=== PATIENT | male | born 1960 | race Caucasian/White ===

== ENCOUNTER 2023-09-21 07:03 | Day surgery (SDC) | payer OTHER ==
[~2023-09-21] VITALS: Ht 193 cm; Wt 90.7 kg
[2023-09-21] MEDS ORDERED: fentaNYL CITRATE/PF 100 MCG/2 ML AMP ONE (07:21)
[2023-09-21] MEDS ORDERED: MIDAZOLAM HCL 5 MG/5 ML VIAL ONE (07:22)
[2023-09-21] MEDS ORDERED: DIPHENHYDRAMINE INJ 50 MG/ML VIAL ONE (08:58)
[2023-09-21 09:00] VITALS: O2SAT 98
[2023-09-21 09:40] VITALS: BP_SYST 106; PULSE 60; RESP 18; TEMP 97.9
== END 2023-09-21 10:20 | disposition home or self-care (01) ==
LOC: SDS 07:03 → SMU 07:04 → SDS 10:20
PROVIDERS: ATTEND Internal Medicine
DX: K74.69 Other cirrhosis of liver (principal); K29.50 Unspecified chronic gastritis without bleeding; K31.89 Other diseases of stomach and duodenum; K25.9 Gastric ulcer, unspecified as acute or chronic, without hemorrhage or perforation; I12.0 Hypertensive chronic kidney disease with stage 5 chronic kidney disease or end stage renal disease; N18.6 End stage renal disease; E78.5 Hyperlipidemia, unspecified; J45.909 Unspecified asthma, uncomplicated; Z88.4 Allergy status to anesthetic agent; Z79.899 Other long term (current) drug therapy
CPT/HCPCS: 43239; 87081; 36415; 88305; 88312; 88313; G0378; J1200; J2250; J3010